=== PATIENT | female | born 1960 | race Caucasian/White ===

== ENCOUNTER 2018-07-02 12:53 | Day surgery (SDC) | payer BC ==
[~2018-07-02 12:53] MED LIST: Buffered Lidocaine 0.9% SYRIN* 5 ML/SYR SYRINGE INTRADERM ONE; Famotidine IV* 10 MG/ML 2 ML (20 mg) IV ONE
[2018-07-02] MEDS ORDERED: Famotidine IV* 10 MG/ML 2 ML (20 mg) ONE (14:25)
[2018-07-02] MEDS ORDERED: KETAMINE HCL* 50 MG/ML 10 ML VIAL ONE (14:59)
[2018-07-02] MEDS ORDERED: Midazolam* 1 MG/ML 5 ML VIAL (5 MG) ONE (14:59)
[2018-07-02] MEDS ORDERED: fentaNYL* 50 MCG/ML 2 ML VIAL (100 MCG VIAL) ONE (14:59)
[2018-07-02] MEDS ORDERED: DiMENhydriNATE IV* 50 MG/ML VIAL IV PUSH PRN (15:34)
[2018-07-02] MEDS ORDERED: Naloxone* 0.4 MG/ML 1 ML VIAL IV PRN (15:34)
[2018-07-02] MEDS ORDERED: Acetaminophen TAB* 325 MG PO PRN (15:34)
[2018-07-02] MEDS ORDERED: Propofol* 10 MG/ML 20 ML BTL ONE (15:49)
[2018-07-02] MEDS ORDERED: Ondansetron INJ* 2 MG/ML VIAL ONE (15:49)
[2018-07-02] MEDS ORDERED: Lidocaine 2% PF * 5 ML VIAL ONE (15:49)
[2018-07-02 17:17] VITALS: BP 104/53
--- NOTE | 2018-07-05 03:58 | PRO ---
CC: Jaime Beckman MD. * DATE OF PROCEDURE: 07/02/18 - [facility] PROCEDURE: EGD with biopsy. REFERRING PROVIDER: Jaime Beckman MD INDICATIONS: The patient with epigastric pain, GERD, history of Rodríguez's, gas , bloating. MEDICATIONS GIVEN: By Anesthesia. DESCRIPTION OF PROCEDURE: Full disclosure of risks was reviewed with the patient as detailed on the consent form. The patient was placed in the left lateral decubitus position and monitored with continuous pulse oximetry, interval blood pressure monitoring, and direct observation. A bite-block was placed between the teeth and Olympus gastroscope was then inserted into the patient's mouth and advanced down into the esophagus, into the stomach, and into the distal duodenum. Findings are detailed below. FINDINGS: Esophagus was a tubular structure without rings or strictures. The GE junction occurred at 38 cm. The Z-line appeared regular without any significant irregularities to suggest Rodríguez's at least endoscopically. Biopsies were obtained. There is a small hiatal hernia over the top of the gastric fold occurring at 39 cm. Stomach was then examined in forward and retroflex views. The gastric antrum was quite erythematous without any erosions or ulcers. Biopsies obtained. Biopsy also obtained and sent for CLOtest. Scope was then advanced into the duodenum to the 4th portion. There were prominent lacteals seen throughout the duodenum. No erosions or ulcers. Biopsies obtained to rule out celiac disease. Scope was then withdrawn from the patient. The patient tolerated the procedure well and was recovered in the GI recovery area. IMPRESSION: 1. No significant endoscopic evidence to suggest Rodríguez's esophagus. GE junction biopsies given history. 2. Small hiatal hernia. 3. Gastric erythema in the antrum without erosions or ulcers. FOLLOWUP: 1. Await pathology. 2. Continue b.i.d. PPI. 3. Avoid NSAIDs. 4. Follow up in clinic with Leticia Gonzalez. Thank you very much for this referral. [id number]/[facility] #: [id number] [facility]
== END 2018-07-02 17:34 | disposition home or self-care (01) ==
LOC: OR 12:53
PROVIDERS: ATTEND Internal Medicine Gastroenterology
DX: R10.13 Epigastric pain (principal); K21.9 Gastro-esophageal reflux disease without esophagitis; R14.0 Abdominal distension (gaseous); M79.7 Fibromyalgia; Z79.891 Long term (current) use of opiate analgesic; Z21 Asymptomatic human immunodeficiency virus [HIV] infection status; E78.2 Mixed hyperlipidemia; K76.9 Liver disease, unspecified; Z72.0 Tobacco use; J44.9 Chronic obstructive pulmonary disease, unspecified; F41.8 Other specified anxiety disorders
CPT/HCPCS: 87077; 88305; 88342; J2250; J2405; J2704; J3010